=== PATIENT | male | born 1960 | race Hispanic/Latino ===

== ENCOUNTER 2017-08-19 15:27 | Outpatient (CLI) | payer MEDICARE ==
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
== END 2017-08-19 15:28 | disposition home or self-care (01) ==
LOC: XRAY 15:27
PROVIDERS: ATTEND Orthopaedic Surgery
DX: M79.641 Pain in right hand (principal)

== ENCOUNTER 2017-08-20 09:55 | Outpatient (CLI) | payer MEDICARE ==
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
== END 2017-08-20 09:56 | disposition home or self-care (01) ==
LOC: XRAY 09:55
PROVIDERS: ATTEND Orthopaedic Surgery
DX: S62.336A Displaced fracture of neck of fifth metacarpal bone, right hand, initial encounter for closed fracture (principal); X58.XXXA Exposure to other specified factors, initial encounter; Y93.89 Activity, other specified; Y92.89 Other specified places as the place of occurrence of the external cause; Y99.8 Other external cause status